=== PATIENT | male | born 1955 | race Caucasian/White ===

== ENCOUNTER 2020-02-04 09:53 | Outpatient (CLI) | payer OTHER, SELFPAY ==
[2020-02-04 10:42] LABS: Hematocrit 45.6 % (42.0-52.0); Hemoglobin 15.2 g/dL (14.0-18.0); Mean Corpuscular HGB Conc 33.3 g/dl (32-36); Mean Corpuscular Hemoglobin 30.2 pg (26-34); Mean Corpuscular Volume 90.5 fl (80-100); Mean Platelet Volume 11.1 fl (7.4-10.4); Platelet Count Result 240 k/mm3 (150-375); Red Blood Count 5.04 M/mm3 (4.6-6.20); Red Cell Distribution Width 13.2 % (11.5-14.5); White Blood Count 10.5 K/mm3 (4.5-10.0)
[2020-02-04 10:46] LABS: Hemoglobin A1C 5.9 % (<5.7)
[2020-02-04 10:50] LABS: Alanine Aminotransferase 27 U/L (4-50); Albumin Level 3.9 g/dL (3.5-5.1); Alkaline Phosphatase 74 U/L (38-126); Anion Gap 4 mmol/L (8-16); Aspartate Amino Transferase 25 U/L (17-59); Bilirubin,Total 0.3 mg/dL (0.2-1.3); Blood Urea Nitrogen 12 mg/dL (9-20); Calcium 9.7 mg/dL (8.4-10.2); Carbon Dioxide 25 mmol/L (22-30); Chloride 107 mmol/L (98-107); Cholesterol 205 mg/dL (0-200); Estimated Glomerular Filt Rate > 60; Glucose 114 mg/dL (75-110); HDL Direct 47 mg/dL; Potassium 4.2 mmol/L (3.4-5.0); Sodium 136 mmol/L (137-145); Triglycerides 93 mg/dL (<150)
[2020-02-04 11:02] LABS: LDL Cholesterol Direct 139 mg/dL
[2020-02-04 11:10] LABS: Creatinine Urine 115.7 mg/dL
[2020-02-04 11:14] LABS: MALB Creatinine Ratio 6.2 mg/g (0-30); Microalbumin Urine Random 7.2 mg/L (0-16.7)
[2020-02-04 11:26] LABS: Prostate Specific Antigen 1.1 ng/mL (< OR = 4.0)
== END 2020-02-04 09:54 | disposition home or self-care (01) ==
LOC: ANHLAB 09:57
PROVIDERS: PCP Internal Medicine; Visit Provider Physician Assistant
DX: E11.9 Type 2 diabetes mellitus without complications (principal); Z12.5 Encounter for screening for malignant neoplasm of prostate
CPT/HCPCS: 36415; 80053; 80061; 82043; 83036; 84153; 84443; 85027; G0103

== ENCOUNTER → 2020-10-07 01:40 | Outpatient (CLI) | payer OTHER, SELFPAY ==
[2020-10-07 19:24] LABS: SARS-CoV-2 RNA PCR Negative
== END ==
PROVIDERS: PCP Internal Medicine; Visit Provider Internal Medicine Gastroenterology
DX: Z01.812 Encounter for preprocedural laboratory examination (principal); Z20.822 Contact with and (suspected) exposure to COVID-19
CPT/HCPCS: C9803; U0003; U0005

== ENCOUNTER 2020-10-10 01:46 | Day surgery (SDC) | payer OTHER, SELFPAY ==
[2020-09-29 13:57] VITALS: BMI 33.5
[2020-10-10 06:32] VITALS: BMI 33.7
[2020-10-10 06:54] VITALS: PULSE 95; RESP 18; TEMP 36.8; O2SAT 97
[2020-10-10] MEDS: LACTATED RINGERS 1,000 ML 150 ML IV CONT (06:57)
[2020-10-10 07:00] LABS: Glucose Point of Care 130 (65-105)
--- NOTE | 2020-10-10 07:03 | WPDANESEPPF ---
Anes - Initial Pre Proc Eval Procedure: Operation Date: 10/10/20 07:30 Proposed Procedures p Screening Colonoscopy - Dandre Rebollar MD Date/Time: 10/10/20 07:03 Surgeon: Dandre Rebollar MD Pre Op Diagnosis: Neoplasm Screening Patient Data Age: 64 Gender: M Height: 5 ft 11 in Weight: 109.8 kg Last Vital Signs Temp 36.8 C 10/10/20 06:54 Pulse 95 10/10/20 06:54 Resp 18 10/10/20 06:54 Pulse Ox 97 10/10/20 06:54 Allergies Allergy/AdvReac Type Severity Reaction Status Date / Time No Known Allergies Allergy Verified 09/29/20 13:56 Home Medications Medication Instructions Recorded Confirmed Type albuterol sulfate 90 mcg/actuation 2 puff INHALATION Q4-6H PRN #8.5 gm 02/07/20 09/29/20 Rx aerosol inhaler atorvastatin 10 mg tablet 10 mg PO DAILY #90 tablet 02/07/20 09/29/20 Rx metformin 500 mg tablet,extended 500 mg PO DAILY #90 tablet 06/02/20 09/29/20 Rx release 24 hr pantoprazole 40 mg tablet,delayed 40 mg PO QAM #90 tablet 06/13/20 09/29/20 Rx release sodium,potassium,mag sulfates 17.5 See Rx Instructions PO .COMPLEX 08/04/20 10/10/20 Rx gram-3.13 gram-1.6 gram oral soln #354 ml Laboratory Tests 10/10/20 06:49 POC Capillary Glucose 130 mg/dl H mg/dl (65-105) Patient hx anesthesia problems: none Family hx anesthesia problems: none PMFSH Past Medical History Medical History Acid reflux Basal cell carcinoma COPD (chronic obstructive pulmonary disease) Diabetes Obesity (BMI 30.0-34.9) Tobacco use Surgical History Surgical History H/O Mohs micrographic surgery for skin cancer Family History Family History Father Family history of malignant neoplasm of esophagus Mother Patient's mother is in good health Sibling Diabetes mellitus Other Hypertension Social History Social History Smoking packs per day: 0.5 Smoking cigarettes per day: 10.0 Years smoked: 40 Smoking pack-years: 20.00 Smoking status: Current every day smoker Tobacco type: cigarettes Second hand tobacco smoke exposure: No Smoking end date: 06/06/11 Alcohol intake: never Substance use: never Substance use type: does not use Living arrangements: with family Gender identity (if verbalized by the patient): Male Sexual Orientation (if Verbalized by the Patient): Straight or Heterosexual Spiritual care concerns: No Anes - Eval Final PreProcedure Day of Procedure 10/10/20 07:03 Patient weight: obese Heart: regular rate and rhythm Lungs: decreased breath sounds Airway: Mallampati scale class II Neurological: alert and oriented Last oral intake: >/= 8 hours ASA classification: III Emergent: no Anesthetic plan: proceed Anesthesia type and monitoring: general GIVS and standard monitoring Informed Consent: The patient's anesthetic plan and its attendant risks and benefits were discussed with the patient/family/POA. Questions were solicited and answers provided to the satisfaction of the patient/family/POA.
--- NOTE | 2020-10-10 07:11 | PM.HPGS ---
History of Present Illness History of Present Illness Consent: Risks, benefits, and alternatives have been discussed and questions answered. Patient agrees to proceed with procedure. Chief complaint: Neoplasm Screening Narrative: Theo Cortez is a 64 year old male Referred for colon cancer screening Review of Systems Review of Systems: All systems reviewed & are unremarkable except as noted in HPI and below PMFSH Past Medical History Medical History Acid reflux Basal cell carcinoma COPD (chronic obstructive pulmonary disease) Diabetes Obesity (BMI 30.0-34.9) Tobacco use Surgical History Surgical History H/O Mohs micrographic surgery for skin cancer Family History Family History Father Family history of malignant neoplasm of esophagus Mother Patient's mother is in good health Sibling Diabetes mellitus Other Hypertension Social History Social History Smoking packs per day: 0.5 Smoking cigarettes per day: 10.0 Years smoked: 40 Smoking pack-years: 20.00 Smoking status: Current every day smoker Tobacco type: cigarettes Second hand tobacco smoke exposure: No Smoking end date: 06/06/11 Alcohol intake: never Substance use: never Substance use type: does not use Living arrangements: with family Gender identity (if verbalized by the patient): Male Sexual Orientation (if Verbalized by the Patient): Straight or Heterosexual Spiritual care concerns: No Meds Home Medications and Allergies Home Medications Medication Instructions Recorded Confirmed Type albuterol sulfate 90 mcg/actuation 2 puff INHALATION Q4-6H PRN #8.5 gm 02/07/20 09/29/20 Rx aerosol inhaler atorvastatin 10 mg tablet 10 mg PO DAILY #90 tablet 02/07/20 09/29/20 Rx metformin 500 mg tablet,extended 500 mg PO DAILY #90 tablet 06/02/20 09/29/20 Rx release 24 hr pantoprazole 40 mg tablet,delayed 40 mg PO QAM #90 tablet 06/13/20 09/29/20 Rx release sodium,potassium,mag sulfates 17.5 See Rx Instructions PO .COMPLEX 08/04/20 10/10/20 Rx gram-3.13 gram-1.6 gram oral soln #354 ml Allergies Allergy/AdvReac Type Severity Reaction Status Date / Time No Known Allergies Allergy Verified 09/29/20 13:56 Vital Signs Vital Signs - 24 hr 10/10/20 06:54 Temperature 36.8 C Pulse Rate 95 Respiratory Rate 18 Pulse Oximetry 97 Exam Resp: Auscultation: clear to auscultation bilaterally Cardio: Rate: regular rate Rhythm: regular rhythm GI: GI Palp: Yes Soft to palpation and No Tenderness to palpation present (GI) Assessment and Plan Assessment and plan (1) Colon cancer screening: Code(s): Z12.11 - Encounter for screening for malignant neoplasm of colon Status: Acute Assessment and Plan: Colonoscopy with possible biopsy or polypectomy or cautery or injection of substances.
[2020-10-10] MEDS: SIMETHICONE ORAL SUSPENSION 20 MG/0.3 ML 30 ML BOTTLE 0.6 ML IRRIGATION (07:38)
[2020-10-10 07:45] VITALS: BP 113/67; PULSE 81; RESP 24; O2SAT 91
[2020-10-10 07:55] VITALS: BP 116/73; PULSE 91; RESP 19; O2SAT 94
[2020-10-10 08:05] VITALS: BP 115/79; PULSE 72; RESP 18; O2SAT 95
== END 2020-10-10 08:22 | disposition home or self-care (01) ==
PROVIDERS: PCP Internal Medicine; Visit Provider Internal Medicine Gastroenterology
PROC: 0DJD8ZZ Inspection of Lower Intestinal Tract, Via Natural or Artificial Opening Endoscopic (ICD-10-PCS; CPT 45378; principal; 2020-10-10 07:30)
DX: Z12.11 Encounter for screening for malignant neoplasm of colon (principal); Z79.84 Long term (current) use of oral hypoglycemic drugs; Z79.51 Long term (current) use of inhaled steroids; K21.9 Gastro-esophageal reflux disease without esophagitis; J44.9 Chronic obstructive pulmonary disease, unspecified; E11.9 Type 2 diabetes mellitus without complications; F17.210 Nicotine dependence, cigarettes, uncomplicated; E66.9 Obesity, unspecified; Z68.33 Body mass index [BMI] 33.0-33.9, adult; K64.4 Residual hemorrhoidal skin tags; K57.30 Diverticulosis of large intestine without perforation or abscess without bleeding
CPT/HCPCS: 45378; 82948; J7120

== ENCOUNTER 2020-10-28 08:30 | Outpatient (CLI) | payer OTHER, SELFPAY ==
[2020-10-28 09:08] LABS: Alanine Aminotransferase 32 U/L (4-50); Albumin Level 3.9 g/dL (3.5-5.1); Alkaline Phosphatase 77 U/L (38-126); Anion Gap 7 mmol/L (8-16); Aspartate Amino Transferase 30 U/L (17-59); Bilirubin,Total 0.3 mg/dL (0.2-1.3); Blood Urea Nitrogen 7 mg/dL (9-20); Calcium 10.2 mg/dL (8.4-10.2); Carbon Dioxide 26 mmol/L (22-30); Chloride 109 mmol/L (98-107); Cholesterol 118 mg/dL (0-200); Estimated Glomerular Filt Rate > 60; Glucose 135 mg/dL (75-110); HDL Direct 40 mg/dL; Potassium 4.1 mmol/L (3.4-5.0); Sodium 142 mmol/L (137-145); Triglycerides 78 mg/dL (<150)
[2020-10-28 09:19] LABS: LDL Cholesterol Direct 54 mg/dL
[2020-10-28 10:44] LABS: Hemoglobin A1C 6.8 % (<5.7)
== END 2020-10-28 08:31 | disposition home or self-care (01) ==
PROVIDERS: PCP Internal Medicine; Visit Provider Physician Assistant
DX: E11.9 Type 2 diabetes mellitus without complications (principal)
CPT/HCPCS: 36415; 80053; 80061; 83036

== ENCOUNTER 2021-03-25 08:49 | Outpatient (CLI) | payer OTHER, SELFPAY ==
--- NOTE | ~2021-03-25 | NM_ITS ---
EXAMINATION: NM stress w perf spect multi DATE: 03/25/2021 11:19 INDICATION: Shortness of breath TECHNIQUE: Rest images were obtained following intravenous administration of 10.6 mCi Tc99m tetrofosm in (Myoview). The patient performed an exercise activity. At peak exercise, 30.55 mCi Tc99m tetrofosm in (Myoview) was administered intravenously, and stress images were obtained. Data was reconstructed into short axis and horizontal and vertical long axis SPECT images. Gated SPECT images were also obta ined. COMPARISON: None. FINDINGS: There is normal left ventricular perfusion without definite evidence of reversible or fixed perfusion abnormality to suggest ischemia or infarction. There is normal left ventricular chamber size, wall motion and ejection fraction. Left ventricular ejection fraction measures 69%. IMPRESSION: 1. Normal myocardial perfusion at rest and during stress. 2. Left ventricular ejection fraction measuring 69%. Reviewed, dictated and finalized at location A.
--- NOTE | 2021-03-25 09:16 | EST_ITS ---
Patient Info Name: Theo Cortez Age: 65 years : 1955 Gender: Male Ht: 71 in Wt: 236 lbs BSA: 2.35 m2 HR: 78 bpm BP: 119 / 81 mmHg Heart Rhythm: Sinus Rhythm Exam Date: 03/25/2021 10:21 AM Exam Location: [facility] Stress Patient Status: Outpatient Admit Date: 03/25/2021 Staff Ordering Physician: Maulik Jaime PA-C Attending Provider: Maulik Jaime PA-C Exercise Technologist: Kylie Conway CT Exercise Physician: Kalpesh Cuenca DO Exam Type: CA stress test treadmill with NM Study Info Indications R06.02 - Shortness of breath A nuclear stress test was performed. Summary 1. 1. Negative Pete exercise stress test for ischemic ST changes by ECG criteria. 2. 2. Reduced functional capacity, achieving 7 METs of workload. 3. 3. Appropriate HR response to exercise. 4. 4. Appropriate HR recovery at 1 minute post exercise. 5. 5. Nuclear scan to follow and will be reported separately. Please correlate with it. 6. 6. Patient informed of the above results. Protocol: Pete Stress ECG Details Stage: REST Duration (min): 1 min : 33 sec Speed (mph): 0.0 Grade (%): 0 HR (bpm): 86 SBP (mmHg): --- DBP (mmHg): --- METS: --- Stage: STAGE 1 Duration (min): 1 min : 0 sec Speed (mph): 1.7 Grade (%): 10 HR (bpm): 106 SBP (mmHg): --- DBP (mmHg): --- METS: --- Stage: STAGE 1 Duration (min): 2 min : 0 sec Speed (mph): 1.7 Grade (%): 10 HR (bpm): 114 SBP (mmHg): --- DBP (mmHg): --- METS: --- Stage: STAGE 1 Duration (min): 3 min : 0 sec Speed (mph): 1.7 Grade (%): 10 HR (bpm): 119 SBP (mmHg): --- DBP (mmHg): --- METS: --- Stage: STAGE 2 Duration (min): 1 min : 0 sec Speed (mph): 2.5 Grade (%): 12 HR (bpm): 122 SBP (mmHg): 170 DBP (mmHg): 70 METS: --- Stage: STAGE 2 Duration (min): 2 min : 0 sec Speed (mph): 2.5 Grade (%): 12 HR (bpm): 138 SBP (mmHg): 185 DBP (mmHg): 78 METS: --- Stage: STAGE 2 Duration (min): 2 min : 59 sec Speed (mph): 2.5 Grade (%): 12 HR (bpm): 142 SBP (mmHg): 185 DBP (mmHg): 78 METS: --- Stage: RECOVERY Duration (min): 1 min : 0 sec Speed (mph): 0.0 Grade (%): 0 HR (bpm): 130 SBP (mmHg): 185 DBP (mmHg): 78 METS: --- Stage: RECOVERY Duration (min): 2 min : 0 sec Speed (mph): 0.0 Grade (%): 0 HR (bpm): 112 SBP (mmHg): 185 DBP (mmHg): 78 METS: --- Stage: RECOVERY Duration (min): 2 min : 53 sec Speed (mph): 0.0 Grade (%): 0 HR (bpm): 106 SBP (mmHg): 150 DBP (mmHg): 80 METS: --- Rest HR: 86 bpm Peak HR: 142 bpm Peak Sys BP: 185 mmHg Max Pred HR: 157 bpm % Max Pred HR: 90 % Target HR: 133 bpm Max RPP: 26,270 bpm*mmHg Rodrigues Score: 0 Termination Reason: Reached target heart rate or workload Cardiac Symptoms: Shortness of breath Max ST Seg Deviation: 1 mm Total Time: 5 min : 59 sec Peak [place] BP: 78 mmHg
== END 2021-03-25 08:50 | disposition home or self-care (01) ==
LOC: ANHCARD 08:53
PROVIDERS: PCP Physician Assistant; Visit Provider Physician Assistant
DX: R06.02 Shortness of breath (principal); R61 Generalized hyperhidrosis
CPT/HCPCS: 78452; 93017; A9502; J2785

== ENCOUNTER 2021-09-14 09:32 | Outpatient (CLI) | payer OTHER, SELFPAY ==
[2021-09-14 10:06] LABS: Hematocrit 44.6 % (42.0-52.0); Hemoglobin 14.6 g/dL (14.0-18.0); Mean Corpuscular HGB Conc 32.7 g/dl (32-36); Mean Corpuscular Hemoglobin 30.2 pg (26-34); Mean Corpuscular Volume 92.3 fl (80-100); Mean Platelet Volume 11.2 fl (7.4-10.4); Platelet Count Result 234 k/mm3 (150-375); Red Blood Count 4.83 M/mm3 (4.6-6.20); Red Cell Distribution Width 12.9 % (11.5-14.5); White Blood Count 10.4 K/mm3 (4.5-10.0)
[2021-09-14 10:17] LABS: Alanine Aminotransferase 27 U/L (4-50); Albumin Level 4.3 g/dL (3.5-5.1); Alkaline Phosphatase 73 U/L (38-126); Anion Gap 9 mmol/L (8-16); Aspartate Amino Transferase 32 U/L (17-59); Bilirubin,Total 0.9 mg/dL (0.2-1.3); Blood Urea Nitrogen 16 mg/dL (9-20); Calcium 9.2 mg/dL (8.4-10.2); Carbon Dioxide 21 mmol/L (22-30); Chloride 107 mmol/L (98-107); Cholesterol 132 mg/dL (0-200); Estimated Glomerular Filt Rate > 60; Glucose 148 mg/dL (65-110); HDL Direct 38 mg/dL; Potassium 4.2 mmol/L (3.4-5.0); Sodium 137 mmol/L (137-145); Triglycerides 103 mg/dL (<150)
[2021-09-14 10:28] LABS: LDL Cholesterol Direct 62 mg/dL
[2021-09-14 10:35] LABS: Hemoglobin A1C 7.1 % (<5.7)
[2021-09-14 10:48] LABS: Prostate Specific Antigen 0.7 ng/mL (< OR = 4.0)
[2021-09-14 11:18] LABS: Creatinine Urine 197.7 mg/dL
[2021-09-14 11:22] LABS: Microalbumin Urine Random 21.7 mg/L (0-16.7)
[2021-09-14 11:25] LABS: Folic Acid > 20.0 ng/mL (2.76->20)
== END 2021-09-14 09:33 | disposition home or self-care (01) ==
LOC: ANHLAB 09:34
PROVIDERS: PCP Physician Assistant; Visit Provider Physician Assistant
DX: Z00.00 Encounter for general adult medical examination without abnormal findings (principal); E11.9 Type 2 diabetes mellitus without complications; R53.83 Other fatigue; Z12.5 Encounter for screening for malignant neoplasm of prostate
CPT/HCPCS: 36415; 80053; 80061; 82043; 82607; 82746; 83036; 84153; 84443; 85027; G0103

== ENCOUNTER 2022-01-21 09:14 | Outpatient (CLI) | payer OTHER, SELFPAY ==
[2022-01-21 09:45] LABS: Hematocrit 45.5 % (42.0-52.0); Hemoglobin 15.1 g/dL (14.0-18.0); Mean Corpuscular HGB Conc 33.2 g/dl (32-36); Mean Corpuscular Volume 90.3 fl (80-100); Mean Platelet Volume 10.5 fl (7.4-10.4); Platelet Count Result 316 k/mm3 (150-375); Red Blood Count 5.04 M/mm3 (4.6-6.20); Red Cell Distribution Width 13.2 % (11.5-14.5); White Blood Count 10.3 K/mm3 (4.5-10.0)
[2022-01-21 10:06] LABS: Alanine Aminotransferase 34 U/L (6-50); Albumin Level 4.1 g/dL (3.5-5.1); Alkaline Phosphatase 101 U/L (38-126); Anion Gap 9 mmol/L (8-16); Aspartate Amino Transferase 24 U/L (17-59); Bilirubin,Total 0.7 mg/dL (0.2-1.3); Blood Urea Nitrogen 10 mg/dL (9-20); Calcium 9.8 mg/dL (8.4-10.2); Carbon Dioxide 27 mmol/L (22-30); Chloride 100 mmol/L (98-107); Estimated Glomerular Filt Rate > 60; Glucose 190 mg/dL (65-110); Potassium 3.8 mmol/L (3.4-5.0); Sodium 136 mmol/L (137-145)
[2022-01-21 10:32] LABS: Iron 147 ug/dL (49-181)
[2022-01-21 10:42] LABS: Percent Iron Saturation 52 % (20-50)
== END 2022-01-21 09:15 | disposition home or self-care (01) ==
PROVIDERS: PCP Internal Medicine; Visit Provider Physician Assistant
DX: K92.1 Melena (principal); E11.9 Type 2 diabetes mellitus without complications
CPT/HCPCS: 36415; 80053; 82728; 83036; 83540; 83550; 85027

== ENCOUNTER 2022-05-03 07:45 | Outpatient (CLI) | payer OTHER, SELFPAY ==
[2022-05-03 08:33] LABS: Alanine Aminotransferase 26 U/L (6-50); Albumin Level 4.3 g/dL (3.5-5.1); Alkaline Phosphatase 81 U/L (38-126); Anion Gap 11 mmol/L (8-16); Aspartate Amino Transferase 26 U/L (17-59); Bilirubin,Total 0.6 mg/dL (0.2-1.3); Blood Urea Nitrogen 11 mg/dL (9-20); Calcium 9.5 mg/dL (8.4-10.2); Carbon Dioxide 26 mmol/L (22-30); Chloride 104 mmol/L (98-107); Estimated Glomerular Filt Rate > 60; Glucose 148 mg/dL (65-110); Potassium 4.2 mmol/L (3.4-5.0); Sodium 141 mmol/L (137-145)
[2022-05-03 09:27] LABS: Hemoglobin A1C 7.2 % (<5.7)
== END 2022-05-03 07:46 | disposition home or self-care (01) ==
LOC: ANHLAB 07:51
PROVIDERS: PCP Internal Medicine; Visit Provider Physician Assistant
DX: E11.9 Type 2 diabetes mellitus without complications (principal)
CPT/HCPCS: 36415; 80053; 83036

== ENCOUNTER 2022-09-25 07:16 | Outpatient (CLI) | payer OTHER, SELFPAY ==
[2022-09-25 08:24] LABS: Basophils Absolute Auto 0.1 K/mm3 (0.0-0.1); Basophils Percent Auto 0.6 % (0.2-1.2); Eosinophils Absolute Auto 0.3 K/mm3 (0-0.3); Eosinophils Percent Auto 2.5 % (0-4.4); Hematocrit 44.1 % (42.0-52.0); Hemoglobin 14.6 g/dL (14.0-18.0); Immature Granulocyte Absolute 0.02 K/mm3 (0.00-0.031); Immature Granulocyte Percent A 0.2 % (0-0.5); Lymphocytes Absolute Auto 3.72 K/mm3 (0.9-3.2); Lymphocytes Percent Auto 36.1 % (18.3-44.2); Mean Corpuscular HGB Conc 33.1 g/dl (32-36); Mean Corpuscular Hemoglobin 30.8 pg (26-34); Mean Platelet Volume 11.3 fl (7.4-10.4); Monocytes Percent Auto 9.4 % (2.6-8.5); Neutrophils Absolute Auto 5.3 K/mm3 (1.3-6.7); Neutrophils Percent Auto 51.2 % (45.5-73.1); Platelet Count Result 226 k/mm3 (150-375); Red Blood Count 4.74 M/mm3 (4.6-6.20); Red Cell Distribution Width 13.2 % (11.5-14.5); White Blood Count 10.3 K/mm3 (4.5-10.0)
[2022-09-25 08:41] LABS: Alanine Aminotransferase 29 U/L (6-50); Albumin Level 4.1 g/dL (3.5-5.1); Alkaline Phosphatase 83 U/L (38-126); Anion Gap 8 mmol/L (8-16); Aspartate Amino Transferase 27 U/L (17-59); Bilirubin,Total 0.5 mg/dL (0.2-1.3); Blood Urea Nitrogen 13 mg/dL (9-20); Calcium 9.2 mg/dL (8.4-10.2); Carbon Dioxide 24 mmol/L (22-30); Chloride 106 mmol/L (98-107); Cholesterol 101 mg/dL (0-200); Estimated Glomerular Filt Rate > 60; Glucose 139 mg/dL (65-110); HDL Direct 38 mg/dL; Potassium 3.7 mmol/L (3.4-5.0); Sodium 138 mmol/L (137-145); Triglycerides 92 mg/dL (<150)
[2022-09-25 08:52] LABS: LDL Cholesterol Direct 43 mg/dL
[2022-09-25 08:59] LABS: Prostate Specific Antigen 0.8 ng/mL (< OR = 4.0)
[2022-09-25 09:02] LABS: Creatinine Urine 249.9 mg/dL
[2022-09-25 09:06] LABS: MALB Creatinine Ratio 14.2 mg/g (0-30); Microalbumin Urine Random 35.5 mg/L (0-16.7)
[2022-09-25 09:32] LABS: Hemoglobin A1C 7.3 % (<5.7)
[2022-09-25 09:35] LABS: Folic Acid > 20.0 ng/mL (2.76->20)
== END 2022-09-25 07:17 | disposition home or self-care (01) ==
PROVIDERS: PCP Internal Medicine; Visit Provider Physician Assistant
DX: Z00.00 Encounter for general adult medical examination without abnormal findings (principal); E11.9 Type 2 diabetes mellitus without complications; Z12.5 Encounter for screening for malignant neoplasm of prostate
CPT/HCPCS: 36415; 80053; 80061; 82043; 82607; 82746; 83036; 84153; 84443; 85025; G0103

== ENCOUNTER 2022-10-05 13:06 | Outpatient (CLI) | payer OTHER, SELFPAY ==
--- NOTE | ~2022-10-05 | US_ITS ---
EXAMINATION: US soft tissue abdomen DATE: 10/05/2022 13:43 INDICATION: Right abdominal pain. TECHNIQUE: Multiple grayscale and Doppler ultrasound images of the abdomen were obtained. COMPARISON: CT abdomen and pelvis 07/22/2010 FINDINGS: There is no abnormal mass or hernia in the patient's area of concern in right abdomen. IMPRESSION: 1. No abnormal mass or hernia in the patient's area of concern in right abdomen. Reviewed, dictated and finalized at location A. IMPRESSION: 1. No abnormal mass or hernia in the patient's area of concern in right abdomen .
== END 2022-10-05 13:07 | disposition home or self-care (01) ==
PROVIDERS: PCP Physician Assistant; Visit Provider Physician Assistant
DX: R10.9 Unspecified abdominal pain (principal)
CPT/HCPCS: 76705

== ENCOUNTER 2022-10-12 11:38 | Emergency (ER) | payer OTHER, SELFPAY ==
--- NOTE | 2022-10-12 11:46 | ED.EAR ---
HPI - Ear Problem General Chief complaint: Ear Stated complaint: clogged ears Time Seen by Provider: 10/12/22 11:41 Source: patient and RN notes reviewed History of Present Illness HPI Narrative: Patient Is a 66-year-old male who presents to the [facility] with complaints of plugged left ear. States that he attempted to remove excess ear wax this morning, and he believes he made it worse. States that he feels as if he has water in his left ear. Denies ear pain. Denies recent fevers. States that he saw his PCP regarding the same issue a few weeks ago, and he attempted to remove the ear wax and was somewhat successful. Related Data Home Medications Medication Instructions Recorded Confirmed ascorbic acid (vitamin C) 1,000 mg 1 g PO DAILY 01/07/22 10/12/22 capsule cholecalciferol (vitamin D3) 25 25 mcg PO DAILY 01/07/22 10/12/22 mcg (1,000 unit) capsule multivitamin 1 tablet PO DAILY 01/07/22 10/12/22 cinnamon bark 500 mg capsule 500 mg PO DAILY 09/28/22 10/12/22 (Cinnamon) Allergies Allergy/AdvReac Type Severity Reaction Status Date / Time No Known Allergies Allergy Verified 10/12/22 11:41 Review of Systems Review of Systems: CONSTITUTIONAL: Denies fever, chills, or sweats. EYES: Denies visual changes, redness, or discharge. ENT: Denies otalgia and sore throat. Reports clogged left ear. Denies ear pain or drainage. CARDIOVASCULAR: Denies chest pain, palpitations, or edema. RESPIRATORY: Denies cough or dyspnea. GASTROINTESTINAL: Denies abdominal pain, nausea, vomiting, or diarrhea. GENITOURINARY: Denies dysuria or hematuria. SKIN: Denies rash or itching. MUSCULOSKELETAL: Denies back pain, joint pain, or myalgia. NEUROLOGIC: Denies headache, numbness, or weakness. Pertinent positives per HPI. PMFSH Past Medical History Medical History Acid reflux Basal cell carcinoma COPD (chronic obstructive pulmonary disease) Diabetes Obesity (BMI 30.0-34.9) Tobacco use Surgical History Surgical History H/O Mohs micrographic surgery for skin cancer Family History Family History Father Family history of malignant neoplasm of esophagus Mother Patient's mother is in good health Sibling Diabetes mellitus Other Hypertension Social History Social History Smoking packs per day: 0.5 Smoking cigarettes per day: 10.0 Years smoked: 40 Smoking pack-years: 20.00 Smoking status: Former smoker Tobacco type: cigarettes Second hand tobacco smoke exposure: No Smoking end date: 06/06/11 Alcohol intake: never Substance use: never Substance use type: does not use Lack of Transportation: No Lack of Food: Never True Current Housing: I Have Housing Concerned About Future Housing: No Difficulty Paying Gas/Electric Bills: No Difficulty Paying for Meds: No Currently Unemployed: No Education: High School Diploma/GED Difficulty w/ Childcare or Family Care: No Living arrangements: with family Gender identity (if verbalized by the patient): Male Sexual Orientation (if Verbalized by the Patient): Straight or Heterosexual Spiritual care concerns: No Comments At the time of my signature, I reviewed and agree with the nursing past medical, surgical, social, and family history. There is no relevant family history pertinent to the patient complaint. Exam Narrative: GENERAL: This is a well-nourished, well-developed patient, in no apparent distress. HEAD: normocephalic, atraumatic. EYES: PERRL. Sclera clear/white. Vision is grossly intact. EARS: External ears normal. Left cerumen impaction noted. Right TM appears normal. Hearing grossly intact. NOSE: External nose normal with no obvious nasal discharge, nares without redness, no rhinorrhea. THROAT: Mucous membranes moist, posterior pharynx clear. NECK: Neck
[2022-10-12 11:47] VITALS: BP 131/88; PULSE 87; RESP 16; TEMP 36.4; O2SAT 98
== END 2022-10-12 12:27 | disposition home or self-care (01) ==
PROVIDERS: Emergency Provider Nurse Practitioner; PCP Physician Assistant
DX: H61.22 Impacted cerumen, left ear (principal); K21.9 Gastro-esophageal reflux disease without esophagitis; J44.9 Chronic obstructive pulmonary disease, unspecified; E11.9 Type 2 diabetes mellitus without complications; Z85.828 Personal history of other malignant neoplasm of skin; Z87.891 Personal history of nicotine dependence
CPT/HCPCS: 69209; 99213; G0463